=== PATIENT | female | born 2000 | race African-American/Black ===

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

== ENCOUNTER 2023-06-20 19:32 | Emergency (ER) | payer MEDICAID, OTHER ==
[2023-06-21] MEDS ORDERED: AMOX875T4 PO (01:20)
== END 2023-06-20 20:32 | disposition left against medical advice (07) ==
LOC: ER 19:32
DX: S01.111A Laceration without foreign body of right eyelid and periocular area, initial encounter (principal); Z53.21 Procedure and treatment not carried out due to patient leaving prior to being seen by health care provider; Y08.89XA Assault by other specified means, initial encounter; Y93.89 Activity, other specified; Y92.89 Other specified places as the place of occurrence of the external cause; Y99.8 Other external cause status

== ENCOUNTER 2023-06-20 22:22 | Emergency (ER) | payer MEDICAID ==
[~2023-06-20] VITALS: Ht 160 cm; Wt 61.8 kg
[2023-06-21] MEDS ORDERED: AMOX875T4 PO (01:20)
[2023-06-21 01:31] VITALS: BP 116/72; PULSE 62; RESP 16; TEMP 98.4; O2SAT 100
== END 2023-06-21 01:36 | disposition home or self-care (01) ==
LOC: ER 22:22
DX: S02.831A Fracture of medial orbital wall, right side, initial encounter for closed fracture (principal); S01.111A Laceration without foreign body of right eyelid and periocular area, initial encounter; Y04.2XXA Assault by strike against or bumped into by another person, initial encounter; Y93.89 Activity, other specified; Y92.89 Other specified places as the place of occurrence of the external cause; Y99.8 Other external cause status
CPT/HCPCS: 12011; 70486